=== PATIENT | male | born 1935 | race Two or more races ===

== ENCOUNTER 2020-02-07 11:48 | Emergency (ER) | payer BC, OTHER ==
[2020-02-07 12:01] VITALS: BMI 32.3
--- NOTE | 2020-02-07 12:36 | PDOC ---
History of Present Illness - General Chief Complaint: Pain, Acute Stated Complaint: ABD PAIN Time Seen by Provider: 02/07/20 12:04 - History of Present Illness Initial Comments: 02/07/20 12:27 84 yo male with PMH of BPH, HTN, hypothyroidism, HLD, asthma, CHF, prior stroke (right sided weakness) presents to the ED with urinary retention and dysuria for about one week. 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 explains that pt has had multiple sxs of urinary retention for years due to BPH but this time he started having dysuria with urinary retention. Pt explains five days ago went to urgent care with sxs and he was given doxycycline which he has been on for five days and has not helped with sxs. believes pt last urination was today but believes he was not able to void fully. then says his diaper was wet so he believes he went on himself. also explains he had a separate complaint of bloody bowel movements due to his hemorrhoid (not sure if internal or external). Pt has had a bowel movement yesterday with an abundance of blood with straining. Pt then had bowel movement this morning who had only a little bowel movement with also a little blood. Pt has had a colonoscopy at [facility] around 3 years ago with no colon cancer pathology. Pt also has associated abdominal swelling which has been going for few weeks. Pt denies abdominal pain, fevers, chills, SOB, chest pain, palpitations, extremity swelling, or any LOC. PMH: - CVA -heart failure -htn -hypothyroid -HLD -asthma -arthiritis Meds: - Aspirin - Famotidine - Furosemide -amlodipine - tamsulosin -finasteride - valsartan -levothyroxine -atrovastatin -montelukast sodium -breo - prednisone PSx: Stents Social: Denies drugs, alcohol, and tobacco. Lives at home with no aids PCP: Dr. Quintero pulariana: Rod cardio: Dr. Mojica Past History - Medical History Allergies/Adverse Reactions: Allergies Allergy/AdvReac Type Severity Reaction Status Date / Time No Known Allergies Allergy Verified 02/07/20 12:38 COPD: No HTN: Yes Hypercholesterolemia: Yes Other medical history: BPH - Psycho-Social/Smoking History Smoking History: Unknown if ever smoked - Substance Abuse Hx (Audit-C & DAST Scrn) How often the patient has a drink containing alcohol: Never Score: In Men: 4 or > Positive; In Women: 3 or > Positive: 0 Screen Result (Pos requires Nsg. Audit-10AR): Negative In the last yr the pt used illegal drug/Rx for NonMed reason: No Score: Yes response is considered Positive: 0 Screen Result (Positive result requires Nsg. DAST-10): Negative Review of Systems - Review of Systems Comments:: 02/07/20 13:00 GENERAL/CONSTITUTIONAL: No fever or chills. No weakness. HEAD, EYES, EARS, NOSE AND THROAT: No change in vision. No ear pain or discharge. No sore throat. CARDIOVASCULAR: No chest pain. Chronic SOB due to asthma RESPIRATORY: No cough, wheezing, or hemoptysis. GASTROINTESTINAL: No nausea, vomiting, diarrhea or constipation. Bloody bowel movements GENITOURINARY: Dysruia and urinary retention MUSCULOSKELETAL: No joint or muscle swelling or pain. No neck or back pain. SKIN: No rash NEUROLOGIC: No headache, vertigo, loss of consciousness, or change in strength/sensation. ENDOCRINE: No increased thirst. No abnormal weight change ALLERGIC/IMMUNOLOGIC: No hives or skin allergy. *Physical Exam - Vital Signs Last Vital Signs Temp Pulse Resp BP Pulse Ox 97.8 F 90 18 106/66 99 02/07/20 11:54 02/07/20 11:54 02/07/20 11:54 02/07/20 11:54 02/07/20 11:54 - Physical Exam 02/07/20 13:02 GENERAL: Awake, alert, and fully oriented, in moderate distress HEAD: No signs of trauma, normocephalic, atraumatic EYES: PERRLA, EOMI, sclera anicteric, conjunctiva clear ENT: Auricles normal inspection, hearing decreased, nares patent, oropharynx clear without exudates. Moist mucosa NECK: Normal ROM, supple, no lymphadenopathy, JVD, or masses LUNGS: No distress, speaks full sentences, clear to auscultation bilaterally HEART: Regular rate and rhythm, normal S1 and S2, no murmurs, rubs or gallops, peripheral pulses normal and equal bilaterally. ABDOMEN: Distended. Normal bowel sounds in all four quandrants. Tender to palpation in RUQ and RLQ EXTREMITIES : Decreased ROM of Right lower ext. no edema. No clubbing or cyanosis. NEUROLOGICAL: Cranial nerves II through XII grossly intact. Normal speech, normal gait, no focal sensorimotor deficits SKIN: Warm, Dry, normal turgor, no rashes or lesions noted Rectal: Soft brown stool. hemorrhoiod located on 7 o clock not bleeding. Prostate felt enlarged but no nodules. ED Treatment Course - LABORATORY CBC & Chemistry Diagram: 02/07/20 12:38 02/07/20 12:38 Medical Decision Making - Medical Decision Making 02/07/20 14:20 84 yo male with pmh of BPH, DM, HTN, HLD presents to ED with dysuria and urinary retention for one week. Will get CBC, CMP, lactate, EKG, Chest Xray, and POCUS to view how much urine is being retained. Will also get UA and UC to rule out UTI. 02/07/20 14:26 With US his Urine volume is around 600-700cc ordered uriner ellis catheter. 02/07/20 15:07 Urinary catether was placed 500+ urine 02/07/20 15:26 Made a call out to urologist automobile service station mechanic Dr. Parada reached legal administrative secretary will call back 02/07/20 15:45 Pt urine came back and showed no infection 02/07/20 22:48 Dr. Parada called back and said it was okay for pt to be discharged with ellis and to tell pt to call office and schedule an appointment when the leave the ED. Message was relayed to pt and they agreed to plan and were given strict return precautions. Discharge - Discharge Information Problems reviewed: Yes Clinical Impression/Diagnosis: Urinary retention Condition: Improved Disposition: HOME - Follow up/Referral Referrals: Jaydon Quintero [Primary Care Provider] - Mike Park MD [Staff Physician] - Mary Alice Ye DO [Staff Physician] - Manolo Santos DO [Staff Physician] - Rickey Sandoval MD [Staff Physician] - Luisa Araujo MD [Staff Physician] - Kaitlin Mccray MD [Staff Physician] - - Patient Discharge Instructions Patient Printed Discharge Instructions: DI for Urinary Retention in Men Additional Instructions: You came into the ED because you were experiencing urinary retention and pain with urination. This is most likely due to your BPH. You also had prior episodes of bloody bowel movements. This was most likely due to your hemorrhoids At the ED you were given a Chest xray, EKG, urinalysis, ultrasound and blood was drawn to rule out any infection. Your blood work and urinanalysis shown no infection. Your ultrasound showed a large amount of urine 500cc so we decided to do a urine cath which showed a >500cc of urine. We decided to leave the catheter in place and you to follow up with an outpatient urologist. For you bloody bowel movements, the bowel movement you had here showed no gross blood. An external hemorrhoid was noted as well but that was not bleeding. You blood work also showed no decrease in Hgb. For this we recommend following up with a casing blower. Your workup is not complete without following up with PCP, urologist, and gastroenterology. Please return to the ED if: -blood in the urine - worsening pain or sxs - SOB -Chest pain - Any emergent sxs If you think you are having an emergency call for medical help right away. - Post Discharge Activity
[2020-02-07 12:57] LABS: BASO % 0.8 % (0-2.0); EOS % 1.3 % (0-4.5); HEMATOCRIT 35.6 % (35.4-49); HEMOGLOBIN 11.7 GM/dL (11.7-16.9); LYMPH % 29.1 % (8-40); MCH 27.4 pg (25.7-33.7); MCHC 32.8 g/dl (32.0-35.9); MEAN CELL VOLUME 83.6 fl (80-96); MEAN PLT VOLUME 7.6 fl (7.5-11.1); MONO % 9.1 % (3.8-10.2); NEUT % 59.7 % (42.8-82.8); PLATELET COUNT 244 K/MM3 (134-434); RBC 4.26 M/mm3 (4.00-5.60); RDW 18.7 % (11.9-15.9); WHITE BLOOD COUNT 8.2 K/mm3 (4.0-10.0)
[2020-02-07 13:29] LABS: ALBUMIN 2.3 g/dl (3.4-5.0); ALK PHOS 83 U/L (45-117); ANION GAP 9 MMOL/L (8-16); BILIRUBIN,TOTAL 0.6 mg/dL (0.2-1); BLOOD UREA NITROGEN 10.3 mg/dL (7-18); CALCIUM 8.3 mg/dL (8.5-10.1); CHLORIDE 99 mmol/L (98-107); CO2 28 mmol/L (21-32); CREATININE 0.9 mg/dL (0.55-1.3); GLUCOSE,RANDOM 126 mg/dL (74-106); SGOT/AST 20 U/L (15-37); SGPT/ALT 24 U/L (13-61); SODIUM 135 mmol/L (136-145)
--- NOTE | 2020-02-07 14:27 | PDOC ---
Documentation entered by Eligio Douglas SCRIBE, acting as scribe for Gisselle Simmons MD. Gisselle Simmons MD: This documentation has been prepared by the josetteibe, Eligio Douglas SCRIBE, under my direction and personally reviewed by me in its entirety. I confirm that the documentation accurately reflects all work, treatment, procedures, and medical decision making performed by me. Attending Attestation - Resident Resident Name: Eulalio Higuera - ED Attending Attestation I have performed the following: I have examined & evaluated the patient, The case was reviewed & discussed with the resident, I agree w/resident's findings & plan, Exceptions are as noted - HPI HPI: 02/07/20 13:02 The patient is an 84 year old male with a significant past medical history of HTN. HLD, BPH, hyperthyroidism, asthma, CHF and stroke who presents to the ED with dysuria and urinary retention for one week. Per patients , the patient has had urinary retention for years secondary to BPH but the retention is now associated with dysuria. Patient went to Urgent Care for evaluation five days ago and was given doxycycline with no relief. Per , the patient also has bloody bowel movements secondary to a hemorrhoid (LBM: this morning). He had a colonoscopy about three years ago at [facility] which showed normal results. THe patient denies fever, chills, sob, or chest pain. The patient denies abd ominal pain. THe patient denies any other symptoms. Social Hx: None reported Surgical Hx: stents PCP: Dr. Quintero Allergies: NKDA - Physicial Exam PE: 02/07/20 14:24 General: well appearing Abdomen: obese limiting exam, soft, mild suprapubic ttp, no rebound, no guarding Back: no CVA tenderness Rectal: + external hemorrhoid - Medical Decision Making 02/07/20 14:25 84 yo M with urinary retention likely 2/2 BPH, will check urine to r/o UTI. Also with some blood with straining and evidence of hemorrhoid on exam, bleeding like ly 2/2 hemorrhoid. No gross blood on CASEY. Plan: -labs -urine -ellis catheter -reassess This clinical encounter is taking place during a federal and state health care emergency attributable to the novel Salazar Virus pandemic. The [place] of the Department of Health and Human Services has declared, pursuant to the Public Health Service Act 319F-3 (42 U.S.C. 247d-6d), that a covered persons activities related to medical countermeasures against COVID-19 will be immune from liability under Federal and State law. 02/09/20 10:07 Ellis inserted, ~500 cc urine returned. Patient with improvement in symptoms. UA without evidence of infection. Pt to be d/bhaskar and will f/u with . Discharge - Discharge Information Problems reviewed: Yes Clinical Impression/Diagnosis: Urinary retention Condition: Improved Disposition: HOME - Follow up/Referral Referrals: Manolo Santos DO [Staff Physician] - Kaitlin Mccray MD [Staff Physician] - Luisa Araujo MD [Staff Physician] - Jaydon Quintero [Primary Care Provider] - Mary Alice Ye DO [Staff Physician] - Mike Park MD [Staff Physician] - Rickey Sandoval MD [Staff Physician] - - Patient Discharge Instructions Patient Printed Discharge Instructions: DI for Urinary Retention in Men Additional Instructions: You came into the ED because you were experiencing urinary retention and pain with urination. This is most likely due to your BPH. You also had prior episodes of bloody bowel movements. This was most likely due to your hemorrhoids At the ED you were given a Chest xray, EKG, urinalysis, ultrasound and blood was drawn to rule out any infection. Your blood work and urinanalysis shown no infection. Your ultrasound showed a large amount of urine 500cc so we decided to do a urine cath which showed a >500cc of urine. We decided to leave the catheter in place and you to follow up with an outpatient urologist. For you bloody bowel movements, the bowel movement you had here showed no gross blood. An external hemorrhoid was noted as well but that was not bleeding. You blood work also showed no decrease in Hgb. For this we recommend following up with a cereal maker. Your workup is not complete without following up with PCP, urologist, and gastroenterology. Please return to the ED if: -blood in the urine - worsening pain or sxs - SOB -Chest pain - Any emergent sxs If you think you are having an emergency call for medical help right away. - Post Discharge Activity
[2020-02-07 15:27] LABS: PH,URINE 7.5 (5.0-8.0); URINE APPEARANCE CLEAR; URINE BILIRUBIN NEGATIVE (NEGATIVE); URINE COLOR YELLOW; URINE GLUCOSE (UA) NEGATIVE (NEGATIVE); URINE KETONE NEGATIVE (NEGATIVE); URINE LEUK ESTERASE NEGATIVE (NEGATIVE); URINE NITRITE NEGATIVE (NEGATIVE); URINE PROTEIN NEGATIVE (NEGATIVE); URINE UROBILINOGEN 0.2 mg/dL (0.2-1.0)
[2020-02-07 15:32] VITALS: BP 110/64
[2020-02-07 16:40] VITALS: PULSE 78; TEMP 98.5
--- NOTE | 2020-02-08 12:06 | EKG ---
Test Reason : Blood Pressure : / mmHG Vent. Rate : 084 BPM Atrial Rate : 084 BPM P-R Int : 144 ms QRS Dur : 112 ms QT Int : 402 ms P-R-T Axes : 010 039 012 degrees QTc Int : 475 ms NORMAL SINUS RHYTHM INCOMPLETE RIGHT BUNDLE BRANCH BLOCK BORDERLINE ECG WHEN COMPARED WITH ECG OF 13-JAN-2006 19:51, INCOMPLETE RIGHT BUNDLE BRANCH BLOCK IS NOW PRESENT Confirmed by Terry Lieberman MD ([id number]) on 02/08/2020 12:05:51 PM Referred By: Confirmed By:Terry Lieberman MD
== END 2020-02-07 16:41 | disposition home or self-care (01) ==
LOC: JER 11:48
DX: R33.9 Retention of urine, unspecified (principal)
CPT/HCPCS: 36415; 71045-TC-FY; 80053; 81003; 83605; 84484; 85025; 87086; 93005; 93010; 99285-25

== ENCOUNTER 2020-07-22 05:15 | Emergency (ER) | payer BC ==
[2020-07-22] MEDS ORDERED: SULFAMETHOXAZOLE/TRIMETHOPRIM 800MG/160MG D.S. TABLET PO ONE (06:35)
[2020-07-22 06:43] VITALS: BP 152/65; PULSE 69; TEMP 97.8; BMI 32.3
[2020-07-22] MEDS ORDERED: SULFAMETHOXAZOLE/TRIMETHOPRIM 800MG/160MG D.S. TABLET ONE (06:52)
[2020-07-22 06:57] LABS: EPI CELLS 2 /uL (0-25.1); HYALINE CASTS 12 /uL (0-3.1); PH,URINE 7.5 (5.0-8.0); URINE APPEARANCE TURBID; URINE BACTERIA >9,000 /uL (0-1359); URINE BILIRUBIN NEGATIVE (NEGATIVE); URINE COLOR YELLOW; URINE GLUCOSE (UA) NEGATIVE (NEGATIVE); URINE KETONE NEGATIVE (NEGATIVE); URINE LEUK ESTERASE 3+ (NEGATIVE); URINE NITRITE NEGATIVE (NEGATIVE); URINE PROTEIN TRACE (NEGATIVE); URINE RBC 1561 /uL (0-23.9); URINE UROBILINOGEN 0.2 mg/dL (0.2-1.0); URINE WBC 2293 /uL (0-25.8)
== END 2020-07-22 07:00 | disposition home or self-care (01) ==
LOC: JER 05:15
DX: N48.89 Other specified disorders of penis (principal); T83.9XXA Unspecified complication of genitourinary prosthetic device, implant and graft, initial encounter
CPT/HCPCS: 81003; 87086; 99284-25

== ENCOUNTER 2020-08-14 23:23 | Inpatient (IN) | payer BC, OTHER ==
[2020-08-14 23:32] VITALS: BMI 28.2
[2020-08-15 01:59] LABS: INR 1.02 (0.83-1.09); PROTHROMBIN TIME (PATIENT) 12.3 SEC (9.7-13.0)
[2020-08-15 02:00] LABS: EPI CELLS 2 /uL (0-25.1); HYALINE CASTS 0 /uL (0-3.1); PH,URINE 7.5 (5.0-8.0); URINE APPEARANCE CLOUDY; URINE BACTERIA 4026 /uL (0-1359); URINE BILIRUBIN NEGATIVE (NEGATIVE); URINE COLOR RED; URINE GLUCOSE (UA) NEGATIVE (NEGATIVE); URINE KETONE NEGATIVE (NEGATIVE); URINE LEUK ESTERASE 3+ (NEGATIVE); URINE NITRITE POSITIVE (NEGATIVE); URINE PROTEIN 1+ (NEGATIVE); URINE RBC 6997 /uL (0-23.9); URINE UROBILINOGEN 0.2 mg/dL (0.2-1.0); URINE WBC 1647 /uL (0-25.8)
[2020-08-15 02:01] LABS: ACTIVATED PTT 27.8 SECONDS (25.2-36.5); BASO % 0.3 % (0-2.0); EOS % 0.2 % (0-4.5); HEMATOCRIT 36.6 % (35.4-49); HEMOGLOBIN 11.8 GM/dL (11.7-16.9); LYMPH % 10.1 % (8-40); MCHC 32.3 g/dl (32.0-35.9); MEAN CELL VOLUME 86.7 fl (80-96); MEAN PLT VOLUME 9.3 fl (7.5-11.1); MONO % 0.5 % (3.8-10.2); NEUT % 88.9 % (42.8-82.8); PLATELET COUNT 310 K/MM3 (134-434); RBC 4.22 M/mm3 (4.00-5.60); RDW 17.7 % (11.9-15.9); WHITE BLOOD COUNT 8.2 K/mm3 (4.0-10.0)
[2020-08-15 02:11] LABS: POTASSIUM 4.3 mmol/L (3.5-5.1)
[2020-08-15 02:13] LABS: CALCIUM 9.2 mg/dL (8.5-10.1)
[2020-08-15 02:14] LABS: ALBUMIN 2.7 g/dl (3.4-5.0); BLOOD UREA NITROGEN 29.6 mg/dL (7-18)
[2020-08-15 02:17] LABS: CREATININE 1.2 mg/dL (0.55-1.3)
[2020-08-15 02:18] LABS: BILIRUBIN,TOTAL 0.3 mg/dL (0.2-1); TOT PROT 6.4 g/dl (6.4-8.2)
[2020-08-15] MEDS ORDERED: LACTATED RINGERS SOLUTION 1000 ML INFUS.BAG IV ONE (03:49)
[2020-08-15 04:25] LABS: BASO % 0.3 % (0-2.0); EOS % 0.3 % (0-4.5); HEMATOCRIT 35.9 % (35.4-49); HEMOGLOBIN 11.4 GM/dL (11.7-16.9); LYMPH % 4.3 % (8-40); MCH 27.9 pg (25.7-33.7); MCHC 31.9 g/dl (32.0-35.9); MEAN CELL VOLUME 87.6 fl (80-96); MEAN PLT VOLUME 8.8 fl (7.5-11.1); MONO % 0.5 % (3.8-10.2); NEUT % 94.6 % (42.8-82.8); PLATELET COUNT 277 K/MM3 (134-434); RBC 4.09 M/mm3 (4.00-5.60); RDW 17.6 % (11.9-15.9); WHITE BLOOD COUNT 16.5 K/mm3 (4.0-10.0)
[2020-08-15 06:13] LABS: ANISOCYTOSIS 1+; MACROCYTOSIS 0; PLATELET ESTIMATE NORMAL
[2020-08-15] MEDS ORDERED: SODIUM CHLORIDE 1,000 ML IV SCH (07:30)
[2020-08-15] MEDS ORDERED: ENOXAPARIN NA (PORCINE) 40 MG/0.4 ML DISP.SYRIN SQ ONE (08:21)
[2020-08-15] MEDS ORDERED: ACETAMINOPHEN 325 MG TABLET (FP) ONE (08:21)
[2020-08-15] MEDS ORDERED: CEFTRIAXONE 1 GM/50 ML BAG ONE (08:22)
[2020-08-15] MEDS ORDERED: PATIENT'S OWN MEDICATION (NON-FORMULARY) (Ipratropium/Albuterol Sulfate 1 PUFF Inhaler) IH PRN (08:34)
[2020-08-15] MEDS: ACETAMINOPHEN 325 MG TABLET (FP) PO PRN (08:42)
[2020-08-15] MEDS ORDERED: FUROSEMIDE 20 MG TABLET (FP) PO SCH ×2 (08:45→14:00)
[2020-08-15] MEDS ORDERED: PIPERACILLIN/TAZOB 3.375 GM 3.375 GM in DEXTROSE 5%-WATER - 50 ML IVPB SCH ×2 (09:00→13:00)
[2020-08-15] MEDS: ENOXAPARIN NA (PORCINE) 40 MG/0.4 ML DISP.SYRIN SQ SCH (09:07)
[2020-08-15] MEDS ORDERED: FAMOTIDINE 10 MG TABLET PO SCH (10:00)
[2020-08-15] MEDS ORDERED: FUROSEMIDE 40 MG TABLET (FP) PO SCH (10:00)
[2020-08-15] MEDS ORDERED: ASPIRIN 81 MG CHEWABLE TABLETS ONE (10:40)
[2020-08-15] MEDS ORDERED: FAMOTIDINE 20 MG TABLET ONE (10:40)
[2020-08-15] MEDS ORDERED: LEVOTHYROXINE NA 25 MCG TABLET (FP) ONE (10:40)
[2020-08-15] MEDS ORDERED: PIPERACILLIN/TAZOB 3.375 GM 3.375 GM/50 ML BAG IVPB ONE ×2 (10:41→18:34)
[2020-08-15 10:59] LABS: POTASSIUM 4.8 mmol/L (3.5-5.1)
[2020-08-15 11:01] LABS: BLOOD UREA NITROGEN 30.9 mg/dL (7-18); CALCIUM 9.3 mg/dL (8.5-10.1)
[2020-08-15 11:05] LABS: CREATININE 1.4 mg/dL (0.55-1.3)
[2020-08-15] MEDS: ASPIRIN 81 MG CHEWABLE TABLETS PO SCH (11:35)
[2020-08-15] MEDS: FINASTERIDE 5 MG TABLET (FP) PO SCH (11:36)
[2020-08-15] MEDS: LEVOTHYROXINE NA 100 MCG TABLET (FP) PO SCH (11:36)
[2020-08-15] MEDS: BUDESONIDE/FORMETEROL FUMARATE 160/4.5 mcg INHALER IH SCH ×2 (11:36→23:06)
[2020-08-15] MEDS: TIOTROPIUM BROMIDE 2.5 MCG (SPIRIVA) RESPIMAT INHALER IH SCH (11:36)
[2020-08-15] MEDS ORDERED: FUROSEMIDE 40 MG TABLET (FP) ONE (11:39)
[2020-08-15] MEDS ORDERED: ALBUTEROL SO4 0.083% IH SOL 2.5 MG/3 ML VIAL.NEB. NEB PRN (14:29)
[2020-08-15] MEDS: PIPERACILLIN/TAZOB 3.375 GM 3.375 GM in DEXTROSE 5%-WATER - 50 ML IVPB SCH (19:04)
[2020-08-15 21:53] LABS: N-TERMINAL BNP 2496.1 pg/ml (5-450)
[2020-08-15] MEDS ORDERED: MONTELUKAST NA 10 MG TABLET ONE (22:28)
[2020-08-15] MEDS ORDERED: ATORVASTATIN CA 80 MG TABLET (FP) ONE (22:28)
[2020-08-15] MEDS: MONTELUKAST NA 10 MG TABLET PO SCH (22:29)
[2020-08-15] MEDS: ATORVASTATIN CA 80 MG TABLET (FP) PO SCH (22:29)
[2020-08-16] MEDS ORDERED: PIPERACILLIN/TAZOB 3.375 GM 3.375 GM/50 ML BAG IVPB ONE ×2 (02:16→08:51)
[2020-08-16] MEDS: PIPERACILLIN/TAZOB 3.375 GM 3.375 GM in DEXTROSE 5%-WATER - 50 ML IVPB SCH ×2 (02:20→10:18)
[2020-08-16] MEDS ORDERED: LEVOTHYROXINE NA 25 MCG TABLET (FP) ONE (05:56)
[2020-08-16] MEDS: LEVOTHYROXINE NA 100 MCG TABLET (FP) PO SCH (06:13)
[2020-08-16 08:20] LABS: BASO % 0.2 % (0-2.0); EOS % 0.4 % (0-4.5); HEMATOCRIT 34.7 % (35.4-49); HEMOGLOBIN 11.2 GM/dL (11.7-16.9); LYMPH % 4.6 % (8-40); MCH 27.8 pg (25.7-33.7); MCHC 32.4 g/dl (32.0-35.9); MONO % 2.7 % (3.8-10.2); NEUT % 92.1 % (42.8-82.8); PLATELET COUNT 245 K/MM3 (134-434); RBC 4.03 M/mm3 (4.00-5.60); WHITE BLOOD COUNT 28.4 K/mm3 (4.0-10.0)
[2020-08-16 08:36] LABS: POTASSIUM 3.8 mmol/L (3.5-5.1)
[2020-08-16 08:40] LABS: ALBUMIN 2.3 g/dl (3.4-5.0); BLOOD UREA NITROGEN 34.6 mg/dL (7-18); CALCIUM 8.3 mg/dL (8.5-10.1); MAGNESIUM 2.4 mg/dL (1.8-2.4)
[2020-08-16 08:43] LABS: CREATININE 1.5 mg/dL (0.55-1.3); PHOSPHOROUS 4.2 mg/dL (2.5-4.9)
[2020-08-16 08:45] LABS: BILIRUBIN,TOTAL 2.1 mg/dL (0.2-1); TOT PROT 6.1 g/dl (6.4-8.2)
[2020-08-16] MEDS ORDERED: ENOXAPARIN NA (PORCINE) 40 MG/0.4 ML DISP.SYRIN SQ ONE (08:50)
[2020-08-16] MEDS ORDERED: ASPIRIN 81 MG CHEWABLE TABLETS ONE (08:51)
[2020-08-16] MEDS ORDERED: PIPERACILLIN/TAZOB 3.375 GM 3.375 GM in DEXTROSE 5%-WATER - 50 ML IVPB SCH (09:00)
[2020-08-16 09:21] LABS: ANISOCYTOSIS 0; MACROCYTOSIS 0; PLATELET ESTIMATE NORMAL
[2020-08-16] MEDS ORDERED: CEFTRIAXONE 1 GM in DEXTROSE 5%-WATER - 50 ML IVPB SCH (10:00)
[2020-08-16] MEDS: BUDESONIDE/FORMETEROL FUMARATE 160/4.5 mcg INHALER IH SCH ×2 (10:17→22:00)
[2020-08-16] MEDS: TIOTROPIUM BROMIDE 2.5 MCG (SPIRIVA) RESPIMAT INHALER IH SCH (10:17)
[2020-08-16] MEDS: FINASTERIDE 5 MG TABLET (FP) PO SCH (10:17)
[2020-08-16] MEDS: ENOXAPARIN NA (PORCINE) 40 MG/0.4 ML DISP.SYRIN SQ SCH (10:17)
[2020-08-16] MEDS: ASPIRIN 81 MG CHEWABLE TABLETS PO SCH (10:17)
[2020-08-16] MEDS ORDERED: methylPREDNISolone NA SUCC 40 MG/1 ML VIAL ONE ×2 (10:44→18:12)
[2020-08-16] MEDS: SODIUM CHLORIDE 1,000 ML IV SCH (10:50)
[2020-08-16] MEDS: methylPREDNISolone NA SUCC 40 MG/1 ML VIAL IVPUSH SCH ×2 (10:50→18:13)
[2020-08-16] MEDS ORDERED: PANTOPRAZOLE SODIUM 40 MG VIAL ONE (14:55)
[2020-08-16] MEDS: PANTOPRAZOLE SODIUM 40 MG VIAL IVPUSH SCH (15:00)
[2020-08-16] MEDS ORDERED: MEROPENEM 1 GM VIAL (RESTRICTED TO ID) IVPB ONE (18:11)
[2020-08-16] MEDS: MEROPENEM 1 GM in DEXTROSE 5%-WATER 100 ML IVPB SCH (18:13)
[2020-08-16] MEDS ORDERED: ATORVASTATIN CA 80 MG TABLET (FP) ONE (21:49)
[2020-08-16] MEDS ORDERED: MONTELUKAST NA 10 MG TABLET ONE (21:49)
[2020-08-16] MEDS: MONTELUKAST NA 10 MG TABLET PO SCH (22:00)
[2020-08-16] MEDS: ATORVASTATIN CA 80 MG TABLET (FP) PO SCH (22:00)
[2020-08-17] MEDS ORDERED: SODIUM CHLORIDE 500 ML IV STA (01:38)
[2020-08-17] MEDS: methylPREDNISolone NA SUCC 40 MG/1 ML VIAL IVPUSH SCH (02:36)
[2020-08-17] MEDS ORDERED: MEROPENEM 1 GM VIAL (RESTRICTED TO ID) IVPB ONE (05:39)
[2020-08-17] MEDS ORDERED: DEXTROSE 5%-WATER 100 ML IVPB ONE (05:39)
[2020-08-17] MEDS: MEROPENEM 1 GM in DEXTROSE 5%-WATER 100 ML IVPB SCH ×2 (06:06→17:24)
[2020-08-17] MEDS: LEVOTHYROXINE NA 100 MCG TABLET (FP) PO SCH (06:15)
[2020-08-17 08:56] LABS: BASO % 0.1 % (0-2.0); HEMATOCRIT 29.9 % (35.4-49); HEMOGLOBIN 9.6 GM/dL (11.7-16.9); LYMPH % 3.8 % (8-40); MCH 27.7 pg (25.7-33.7); MCHC 31.9 g/dl (32.0-35.9); MEAN CELL VOLUME 86.6 fl (80-96); MEAN PLT VOLUME 9.1 fl (7.5-11.1); MONO % 1.9 % (3.8-10.2); NEUT % 92.2 % (42.8-82.8); PLATELET COUNT 200 K/MM3 (134-434); RBC 3.46 M/mm3 (4.00-5.60); RDW 18.4 % (11.9-15.9)
[2020-08-17 09:13] LABS: POTASSIUM 3.8 mmol/L (3.5-5.1)
[2020-08-17 09:17] LABS: CALCIUM 7.8 mg/dL (8.5-10.1)
[2020-08-17 09:18] LABS: ALBUMIN 1.9 g/dl (3.4-5.0); BLOOD UREA NITROGEN 39.2 mg/dL (7-18)
[2020-08-17 09:21] LABS: CREATININE 1.5 mg/dL (0.55-1.3)
[2020-08-17 09:23] LABS: BILIRUBIN,TOTAL 0.7 mg/dL (0.2-1); TOT PROT 5.4 g/dl (6.4-8.2)
[2020-08-17] MEDS: ASPIRIN 81 MG CHEWABLE TABLETS PO SCH (09:38)
[2020-08-17] MEDS: PANTOPRAZOLE SODIUM 40 MG VIAL IVPUSH SCH (09:38)
[2020-08-17] MEDS: ENOXAPARIN NA (PORCINE) 40 MG/0.4 ML DISP.SYRIN SQ SCH (09:38)
[2020-08-17] MEDS: BUDESONIDE/FORMETEROL FUMARATE 160/4.5 mcg INHALER IH SCH ×2 (09:41→21:34)
[2020-08-17] MEDS: FINASTERIDE 5 MG TABLET (FP) PO SCH (09:57)
[2020-08-17] MEDS: SODIUM CHLORIDE 1,000 ML IV SCH (11:43)
[2020-08-17] MEDS: TIOTROPIUM BROMIDE 2.5 MCG (SPIRIVA) RESPIMAT INHALER IH SCH (11:43)
[2020-08-17 12:28] LABS: ANISOCYTOSIS 0; MACROCYTOSIS 0; PLATELET ESTIMATE NORMAL
[2020-08-17] MEDS: ATORVASTATIN CA 80 MG TABLET (FP) PO SCH (21:34)
[2020-08-17] MEDS: MONTELUKAST NA 10 MG TABLET PO SCH (21:34)
[2020-08-18] MEDS: MEROPENEM 1 GM in DEXTROSE 5%-WATER 100 ML IVPB SCH (06:03)
[2020-08-18] MEDS: LEVOTHYROXINE NA 100 MCG TABLET (FP) PO SCH (06:04)
[2020-08-18 08:26] LABS: BASO % 0.2 % (0-2.0); HEMATOCRIT 28.9 % (35.4-49); HEMOGLOBIN 9.4 GM/dL (11.7-16.9); LYMPH % 5.7 % (8-40); MCH 27.9 pg (25.7-33.7); MCHC 32.6 g/dl (32.0-35.9); MEAN CELL VOLUME 85.7 fl (80-96); MEAN PLT VOLUME 9.1 fl (7.5-11.1); MONO % 3.6 % (3.8-10.2); NEUT % 90.5 % (42.8-82.8); PLATELET COUNT 188 K/MM3 (134-434); RBC 3.37 M/mm3 (4.00-5.60); RDW 18.2 % (11.9-15.9)
[2020-08-18 08:38] LABS: POTASSIUM 4.1 mmol/L (3.5-5.1)
[2020-08-18 08:42] LABS: CALCIUM 7.8 mg/dL (8.5-10.1)
[2020-08-18 08:43] LABS: ALBUMIN 1.9 g/dl (3.4-5.0); BLOOD UREA NITROGEN 37.8 mg/dL (7-18); MAGNESIUM 2.7 mg/dL (1.8-2.4)
[2020-08-18 08:46] LABS: CREATININE 1.4 mg/dL (0.55-1.3)
[2020-08-18 08:47] LABS: BILIRUBIN,TOTAL 0.4 mg/dL (0.2-1); PHOSPHOROUS 2.9 mg/dL (2.5-4.9)
[2020-08-18 08:48] LABS: TOT PROT 5.3 g/dl (6.4-8.2)
[2020-08-18] MEDS: ENOXAPARIN NA (PORCINE) 40 MG/0.4 ML DISP.SYRIN SQ SCH (09:17)
[2020-08-18] MEDS: ASPIRIN 81 MG CHEWABLE TABLETS PO SCH (09:17)
[2020-08-18] MEDS: DEXTROSE 5%-WATER - 1,000 ML IV SCH (09:22)
[2020-08-18] MEDS: FINASTERIDE 5 MG TABLET (FP) PO SCH (09:24)
[2020-08-18] MEDS: predniSONE 20 MG TABLET (UD) PO SCH (09:24)
[2020-08-18] MEDS: PANTOPRAZOLE SODIUM 40 MG VIAL IVPUSH SCH (09:27)
[2020-08-18] MEDS ORDERED: DOCUSATE SODIUM 100 MG CAPSULE (FP) PO PRN (09:49)
[2020-08-18] MEDS: TIOTROPIUM BROMIDE 2.5 MCG (SPIRIVA) RESPIMAT INHALER IH SCH (10:23)
[2020-08-18] MEDS: BUDESONIDE/FORMETEROL FUMARATE 160/4.5 mcg INHALER IH SCH ×2 (10:23→22:19)
[2020-08-18 11:15] LABS: ANISOCYTOSIS 0; MACROCYTOSIS 0; PLATELET ESTIMATE NORMAL
[2020-08-18] MEDS ORDERED: DEXTROSE 5%-WATER - 50 ML IVPB ONE (11:31)
[2020-08-18] MEDS ORDERED: cefTRIAXone SODIUM 1 GM VIAL ONE (11:31)
[2020-08-18] MEDS: CEFTRIAXONE 1 GM in DEXTROSE 5%-WATER - 50 ML IVPB SCH (11:51)
[2020-08-18] MEDS: INSULIN SLIDING SCALE (NOVOLOG) 1 VIAL SQ SCH ×2 (16:22→22:11)
[2020-08-18 20:39] LABS: POTASSIUM 4.6 mmol/L (3.5-5.1)
[2020-08-18 20:41] LABS: BLOOD UREA NITROGEN 33.5 mg/dL (7-18); CALCIUM 8.2 mg/dL (8.5-10.1)
[2020-08-18 20:45] LABS: CREATININE 1.2 mg/dL (0.55-1.3)
[2020-08-18] MEDS: ATORVASTATIN CA 80 MG TABLET (FP) PO SCH (22:09)
[2020-08-18] MEDS: SENNOSIDES 8.6MG TABLET (FP) PO SCH (22:09)
[2020-08-18] MEDS: MONTELUKAST NA 10 MG TABLET PO SCH (22:09)
[2020-08-19] MEDS: DEXTROSE 5%-WATER - 1,000 ML IV SCH (06:36)
[2020-08-19] MEDS: LEVOTHYROXINE NA 100 MCG TABLET (FP) PO SCH (06:36)
[2020-08-19] MEDS: INSULIN SLIDING SCALE (NOVOLOG) 1 VIAL SQ SCH ×4 (06:37→21:54)
[2020-08-19] MEDS ORDERED: cefTRIAXone SODIUM 1 GM VIAL ONE (09:21)
[2020-08-19] MEDS ORDERED: DEXTROSE 5%-WATER - 50 ML IVPB ONE (09:21)
[2020-08-19] MEDS: CEFTRIAXONE 1 GM in DEXTROSE 5%-WATER - 50 ML IVPB SCH (10:36)
[2020-08-19] MEDS: BUDESONIDE/FORMETEROL FUMARATE 160/4.5 mcg INHALER IH SCH ×2 (10:37→21:54)
[2020-08-19] MEDS: TIOTROPIUM BROMIDE 2.5 MCG (SPIRIVA) RESPIMAT INHALER IH SCH (10:37)
[2020-08-19] MEDS: ASPIRIN 81 MG CHEWABLE TABLETS PO SCH (10:38)
[2020-08-19] MEDS: PANTOPRAZOLE SODIUM 40 MG VIAL IVPUSH SCH (10:38)
[2020-08-19] MEDS: ENOXAPARIN NA (PORCINE) 40 MG/0.4 ML DISP.SYRIN SQ SCH (10:38)
[2020-08-19] MEDS: FINASTERIDE 5 MG TABLET (FP) PO SCH (10:38)
[2020-08-19] MEDS: predniSONE 20 MG TABLET (UD) PO SCH (10:38)
[2020-08-19 10:49] LABS: BASO % 0.2 % (0-2.0); EOS % 0.1 % (0-4.5); HEMATOCRIT 31.4 % (35.4-49); LYMPH % 13.6 % (8-40); MCH 27.9 pg (25.7-33.7); MEAN CELL VOLUME 87.1 fl (80-96); MEAN PLT VOLUME 9.4 fl (7.5-11.1); NEUT % 80.1 % (42.8-82.8); PLATELET COUNT 195 K/MM3 (134-434); RDW 18.1 % (11.9-15.9); WHITE BLOOD COUNT 15.5 K/mm3 (4.0-10.0)
[2020-08-19 10:58] LABS: POTASSIUM 4.3 mmol/L (3.5-5.1)
[2020-08-19 11:04] LABS: CALCIUM 8.4 mg/dL (8.5-10.1)
[2020-08-19 11:05] LABS: BLOOD UREA NITROGEN 28.1 mg/dL (7-18); MAGNESIUM 2.7 mg/dL (1.8-2.4)
[2020-08-19 11:08] LABS: CREATININE 1.2 mg/dL (0.55-1.3); PHOSPHOROUS 2.6 mg/dL (2.5-4.9)
[2020-08-19 11:09] LABS: TOT PROT 5.5 g/dl (6.4-8.2)
[2020-08-19 11:12] LABS: BILIRUBIN,TOTAL 0.4 mg/dL (0.2-1)
[2020-08-19] MEDS: ACETAMINOPHEN 325 MG TABLET (FP) PO PRN (11:15)
[2020-08-19] MEDS: amLODIPine BESYLATE 5 MG TABLET (FP) PO SCH (14:49)
[2020-08-19] MEDS: VALSARTAN 40 MG TABLET PO SCH (14:52)
[2020-08-19] MEDS ORDERED: FUROSEMIDE 40 MG/4 ML INJECTABLE VIAL IVPUSH ONE (15:00)
[2020-08-19] MEDS: MONTELUKAST NA 10 MG TABLET PO SCH (21:53)
[2020-08-19] MEDS: ATORVASTATIN CA 80 MG TABLET (FP) PO SCH (21:53)
[2020-08-19] MEDS: SENNOSIDES 8.6MG TABLET (FP) PO SCH (21:54)
[2020-08-20] MEDS ORDERED: FUROSEMIDE 40 MG/4 ML INJECTABLE VIAL IVPUSH ONE ×2 (05:05→08:27)
[2020-08-20] MEDS ORDERED: METOPROLOL TARTRATE 5 MG/5 ML VIAL IVPUSH ONE (05:16)
[2020-08-20] MEDS ORDERED: METOPROLOL TARTRATE 5 MG/5 ML VIAL ONE (05:17)
[2020-08-20] MEDS: INSULIN SLIDING SCALE (NOVOLOG) 1 VIAL SQ SCH ×4 (06:51→21:26)
[2020-08-20] MEDS: LEVOTHYROXINE NA 100 MCG TABLET (FP) PO SCH (06:51)
[2020-08-20] MEDS ORDERED: DEXTROSE 5%-WATER - 50 ML IVPB ONE (09:09)
[2020-08-20] MEDS ORDERED: cefTRIAXone SODIUM 1 GM VIAL ONE (09:09)
[2020-08-20] MEDS: ENOXAPARIN NA (PORCINE) 40 MG/0.4 ML DISP.SYRIN SQ SCH (09:27)
[2020-08-20] MEDS: PANTOPRAZOLE SODIUM 40 MG VIAL IVPUSH SCH (09:27)
[2020-08-20] MEDS: FINASTERIDE 5 MG TABLET (FP) PO SCH (09:27)
[2020-08-20] MEDS: predniSONE 20 MG TABLET (UD) PO SCH (09:27)
[2020-08-20] MEDS: ASPIRIN 81 MG CHEWABLE TABLETS PO SCH (09:27)
[2020-08-20] MEDS: CEFTRIAXONE 1 GM in DEXTROSE 5%-WATER - 50 ML IVPB SCH (09:27)
[2020-08-20] MEDS: amLODIPine BESYLATE 5 MG TABLET (FP) PO SCH (09:27)
[2020-08-20] MEDS: VALSARTAN 40 MG TABLET PO SCH (09:27)
[2020-08-20] MEDS: TIOTROPIUM BROMIDE 2.5 MCG (SPIRIVA) RESPIMAT INHALER IH SCH (09:28)
[2020-08-20] MEDS: BUDESONIDE/FORMETEROL FUMARATE 160/4.5 mcg INHALER IH SCH ×2 (09:28→21:33)
[2020-08-20 09:29] LABS: HEMATOCRIT 38.2 % (35.4-49); HEMOGLOBIN 12.5 GM/dL (11.7-16.9); MCH 28.2 pg (25.7-33.7); MCHC 32.6 g/dl (32.0-35.9); MEAN CELL VOLUME 86.5 fl (80-96); MEAN PLT VOLUME 9.3 fl (7.5-11.1); PLATELET COUNT 277 K/MM3 (134-434); RBC 4.42 M/mm3 (4.00-5.60); RDW 18.7 % (11.9-15.9); WHITE BLOOD COUNT 20.2 K/mm3 (4.0-10.0)
[2020-08-20 09:50] LABS: ALBUMIN 2.5 g/dl (3.4-5.0); BLOOD UREA NITROGEN 32.2 mg/dL (7-18); CALCIUM 9.2 mg/dL (8.5-10.1); MAGNESIUM 2.4 mg/dL (1.8-2.4)
[2020-08-20 09:52] LABS: BILIRUBIN,TOTAL 0.4 mg/dL (0.2-1); TOT PROT 7.1 g/dl (6.4-8.2)
[2020-08-20 09:53] LABS: CREATININE 1.3 mg/dL (0.55-1.3); PHOSPHOROUS 4.4 mg/dL (2.5-4.9)
[2020-08-20] MEDS: METOPROLOL TARTRATE 25 MG TABLET (FP) PO SCH ×2 (12:02→21:26)
[2020-08-20] MEDS: APIXABAN 5 MG TABLET PO SCH ×2 (13:57→21:26)
[2020-08-20] MEDS: FUROSEMIDE 40 MG/4 ML INJECTABLE VIAL IVPUSH SCH (13:57)
[2020-08-20] MEDS: ATORVASTATIN CA 80 MG TABLET (FP) PO SCH (21:26)
[2020-08-20] MEDS: MONTELUKAST NA 10 MG TABLET PO SCH (21:26)
[2020-08-20] MEDS: SENNOSIDES 8.6MG TABLET (FP) PO SCH (21:26)
[2020-08-21] MEDS: FUROSEMIDE 40 MG/4 ML INJECTABLE VIAL IVPUSH SCH ×2 (06:45→14:22)
[2020-08-21] MEDS: LEVOTHYROXINE NA 100 MCG TABLET (FP) PO SCH (06:45)
[2020-08-21] MEDS: INSULIN SLIDING SCALE (NOVOLOG) 1 VIAL SQ SCH ×4 (06:45→22:20)
[2020-08-21 08:14] LABS: BASO % 0.1 % (0-2.0); EOS % 0.2 % (0-4.5); HEMATOCRIT 37.9 % (35.4-49); HEMOGLOBIN 12.3 GM/dL (11.7-16.9); LYMPH % 20.4 % (8-40); MCH 27.6 pg (25.7-33.7); MCHC 32.5 g/dl (32.0-35.9); MEAN CELL VOLUME 84.8 fl (80-96); MEAN PLT VOLUME 9.4 fl (7.5-11.1); MONO % 6.1 % (3.8-10.2); NEUT % 73.2 % (42.8-82.8); PLATELET COUNT 324 K/MM3 (134-434); RBC 4.47 M/mm3 (4.00-5.60); RDW 17.6 % (11.9-15.9); WHITE BLOOD COUNT 18.2 K/mm3 (4.0-10.0)
[2020-08-21 08:45] LABS: CREATININE 1.1 mg/dL (0.55-1.3); PHOSPHOROUS 3.8 mg/dL (2.5-4.9)
[2020-08-21 08:47] LABS: BILIRUBIN,TOTAL 0.8 mg/dL (0.2-1); TOT PROT 6.7 g/dl (6.4-8.2)
[2020-08-21 08:48] LABS: ALBUMIN 2.4 g/dl (3.4-5.0); BLOOD UREA NITROGEN 36.9 mg/dL (7-18); CALCIUM 9.6 mg/dL (8.5-10.1); MAGNESIUM 2.3 mg/dL (1.8-2.4)
[2020-08-21] MEDS ORDERED: cefTRIAXone SODIUM 1 GM VIAL ONE (09:06)
[2020-08-21] MEDS ORDERED: DEXTROSE 5%-WATER - 50 ML IVPB ONE (09:06)
[2020-08-21 09:25] LABS: ANISOCYTOSIS 1+; MACROCYTOSIS 0; OVALOCYTE 1+; PLATELET ESTIMATE NORMAL
[2020-08-21] MEDS: METOPROLOL TARTRATE 25 MG TABLET (FP) PO SCH ×2 (09:35→22:09)
[2020-08-21] MEDS: CEFTRIAXONE 1 GM in DEXTROSE 5%-WATER - 50 ML IVPB SCH (09:35)
[2020-08-21] MEDS: FINASTERIDE 5 MG TABLET (FP) PO SCH (09:35)
[2020-08-21] MEDS: predniSONE 20 MG TABLET (UD) PO SCH (09:35)
[2020-08-21] MEDS: ASPIRIN 81 MG CHEWABLE TABLETS PO SCH (09:35)
[2020-08-21] MEDS: amLODIPine BESYLATE 5 MG TABLET (FP) PO SCH (09:35)
[2020-08-21] MEDS: VALSARTAN 40 MG TABLET PO SCH (09:35)
[2020-08-21] MEDS: APIXABAN 5 MG TABLET PO SCH ×2 (09:35→22:09)
[2020-08-21] MEDS: PANTOPRAZOLE SODIUM 40 MG VIAL IVPUSH SCH (09:36)
[2020-08-21] MEDS: BUDESONIDE/FORMETEROL FUMARATE 160/4.5 mcg INHALER IH SCH ×2 (09:37→22:20)
[2020-08-21] MEDS: TIOTROPIUM BROMIDE 2.5 MCG (SPIRIVA) RESPIMAT INHALER IH SCH (09:37)
[2020-08-21] MEDS ORDERED: SCOPOLAMINE HYDROBROMIDE 1 PATCH PATCH.TD72 TD SCH (11:30)
[2020-08-21] MEDS: SENNOSIDES 8.6MG TABLET (FP) PO SCH (22:09)
[2020-08-21] MEDS: MONTELUKAST NA 10 MG TABLET PO SCH (22:09)
[2020-08-21] MEDS: ATORVASTATIN CA 80 MG TABLET (FP) PO SCH (22:09)
[2020-08-22] MEDS: LEVOTHYROXINE NA 100 MCG TABLET (FP) PO SCH (06:15)
[2020-08-22] MEDS: FUROSEMIDE 40 MG/4 ML INJECTABLE VIAL IVPUSH SCH ×2 (06:18→13:25)
[2020-08-22] MEDS: INSULIN SLIDING SCALE (NOVOLOG) 1 VIAL SQ SCH ×4 (06:28→21:57)
[2020-08-22 08:12] LABS: BASO % 0.3 % (0-2.0); EOS % 0.8 % (0-4.5); HEMATOCRIT 38.1 % (35.4-49); HEMOGLOBIN 12.3 GM/dL (11.7-16.9); LYMPH % 24.7 % (8-40); MCH 27.8 pg (25.7-33.7); MCHC 32.1 g/dl (32.0-35.9); MEAN CELL VOLUME 86.6 fl (80-96); MEAN PLT VOLUME 9.5 fl (7.5-11.1); MONO % 5.7 % (3.8-10.2); NEUT % 68.5 % (42.8-82.8); PLATELET COUNT 369 K/MM3 (134-434); RDW 17.9 % (11.9-15.9); WHITE BLOOD COUNT 15.7 K/mm3 (4.0-10.0)
[2020-08-22 08:24] LABS: POTASSIUM 4.2 mmol/L (3.5-5.1)
[2020-08-22 08:31] LABS: CALCIUM 9.3 mg/dL (8.5-10.1)
[2020-08-22 08:32] LABS: ALBUMIN 2.2 g/dl (3.4-5.0); BLOOD UREA NITROGEN 40.6 mg/dL (7-18); MAGNESIUM 2.2 mg/dL (1.8-2.4)
[2020-08-22 08:33] LABS: CREATININE 1.3 mg/dL (0.55-1.3)
[2020-08-22 08:35] LABS: BILIRUBIN,TOTAL 0.8 mg/dL (0.2-1); PHOSPHOROUS 4.4 mg/dL (2.5-4.9); TOT PROT 6.5 g/dl (6.4-8.2)
[2020-08-22] MEDS ORDERED: PT OWN MED DRAWER 7, Y5N ONE (09:18)
[2020-08-22] MEDS ORDERED: cefTRIAXone SODIUM 1 GM VIAL ONE (09:19)
[2020-08-22] MEDS ORDERED: DEXTROSE 5%-WATER - 50 ML IVPB ONE (09:19)
[2020-08-22 10:09] LABS: ANISOCYTOSIS 1+; MACROCYTOSIS 0; PLATELET ESTIMATE NORMAL
[2020-08-22] MEDS: BUDESONIDE/FORMETEROL FUMARATE 160/4.5 mcg INHALER IH SCH ×2 (10:23→22:00)
[2020-08-22] MEDS: TIOTROPIUM BROMIDE 2.5 MCG (SPIRIVA) RESPIMAT INHALER IH SCH (10:36)
[2020-08-22] MEDS: ASPIRIN 81 MG CHEWABLE TABLETS PO SCH (10:47)
[2020-08-22] MEDS: predniSONE 20 MG TABLET (UD) PO SCH (10:47)
[2020-08-22] MEDS: FINASTERIDE 5 MG TABLET (FP) PO SCH (10:48)
[2020-08-22] MEDS: amLODIPine BESYLATE 5 MG TABLET (FP) PO SCH (10:48)
[2020-08-22] MEDS: METOPROLOL TARTRATE 25 MG TABLET (FP) PO SCH ×2 (10:48→21:33)
[2020-08-22] MEDS: PANTOPRAZOLE SODIUM 40 MG VIAL IVPUSH SCH (10:48)
[2020-08-22] MEDS: VALSARTAN 40 MG TABLET PO SCH (10:48)
[2020-08-22] MEDS: APIXABAN 5 MG TABLET PO SCH ×2 (10:48→21:33)
[2020-08-22] MEDS: CEFTRIAXONE 1 GM in DEXTROSE 5%-WATER - 50 ML IVPB SCH (10:48)
[2020-08-22] MEDS ORDERED: SODIUM CHLORIDE 1,000 ML IV SCH (14:45)
[2020-08-22] MEDS ORDERED: FLUDROCORTISONE ACETATE 0.1 MG TABLET (FP) GT SCH (14:45)
[2020-08-22] MEDS: ATORVASTATIN CA 80 MG TABLET (FP) PO SCH (21:32)
[2020-08-22] MEDS: SENNOSIDES 8.6MG TABLET (FP) PO SCH (21:33)
[2020-08-22] MEDS: MONTELUKAST NA 10 MG TABLET PO SCH (21:34)
[2020-08-23] MEDS: FUROSEMIDE 40 MG/4 ML INJECTABLE VIAL IVPUSH SCH ×3 (06:46→13:45)
[2020-08-23] MEDS: INSULIN SLIDING SCALE (NOVOLOG) 1 VIAL SQ SCH ×2 (06:46→12:19)
[2020-08-23] MEDS: LEVOTHYROXINE NA 100 MCG TABLET (FP) PO SCH (06:48)
[2020-08-23] MEDS ORDERED: cefTRIAXone SODIUM 1 GM VIAL ONE (09:11)
[2020-08-23] MEDS ORDERED: DEXTROSE 5%-WATER - 50 ML IVPB ONE (09:11)
[2020-08-23] MEDS: amLODIPine BESYLATE 5 MG TABLET (FP) PO SCH (09:20)
[2020-08-23] MEDS: CEFTRIAXONE 1 GM in DEXTROSE 5%-WATER - 50 ML IVPB SCH (09:20)
[2020-08-23] MEDS: PANTOPRAZOLE SODIUM 40 MG VIAL IVPUSH SCH (09:20)
[2020-08-23] MEDS: ASPIRIN 81 MG CHEWABLE TABLETS PO SCH (09:20)
[2020-08-23] MEDS: FINASTERIDE 5 MG TABLET (FP) PO SCH (09:20)
[2020-08-23] MEDS: APIXABAN 5 MG TABLET PO SCH (09:20)
[2020-08-23] MEDS: BUDESONIDE/FORMETEROL FUMARATE 160/4.5 mcg INHALER IH SCH (09:20)
[2020-08-23] MEDS: predniSONE 20 MG TABLET (UD) PO SCH (09:20)
[2020-08-23] MEDS: TIOTROPIUM BROMIDE 2.5 MCG (SPIRIVA) RESPIMAT INHALER IH SCH (09:20)
[2020-08-23] MEDS: VALSARTAN 40 MG TABLET PO SCH (09:43)
[2020-08-23] MEDS: METOPROLOL TARTRATE 25 MG TABLET (FP) PO SCH (09:43)
[2020-08-23 10:55] LABS: ALBUMIN 2.1 g/dl (3.4-5.0); BILIRUBIN,TOTAL 0.4 mg/dL (0.2-1); BLOOD UREA NITROGEN 40.3 mg/dL (7-18); CALCIUM 8.9 mg/dL (8.5-10.1); CREATININE 1.3 mg/dL (0.55-1.3); POTASSIUM 3.9 mmol/L (3.5-5.1)
[2020-08-23 14:14] VITALS: PULSE 75
[2020-08-23 14:16] VITALS: BP 122/55; TEMP 97.8
== END 2020-08-23 16:46 | disposition hospice, home (50) | DRG 698 ==
LOC: JER 23:23 → UNDOADMOB 08-15 06:15 → JERBED 08-15 06:15 → INTOOBSV 08-15 06:15 → OBSVTOIN 08-15 07:20 → UNDOADMOB 08-15 07:20 → JERBED 08-15 07:20 → OBSVTOIN 08-16 17:09 → JERBED 08-16 17:09 → J6WEST-2 08-17 00:23 → JERBED 08-17 00:23 → J4W 08-21 19:05
PROVIDERS: ADMIT Hospitalist; ATTEND Student in an Organized Health Care Education/Training Program
DX: T83.511A Infection and inflammatory reaction due to indwelling urethral catheter, initial encounter (principal); A41.89 Other specified sepsis; I50.33 Acute on chronic diastolic (congestive) heart failure; G93.41 Metabolic encephalopathy; J96.01 Acute respiratory failure with hypoxia; I69.351 Hemiplegia and hemiparesis following cerebral infarction affecting right dominant side; J44.1 Chronic obstructive pulmonary disease with (acute) exacerbation; N17.9 Acute kidney failure, unspecified; I13.0 Hypertensive heart and chronic kidney disease with heart failure and stage 1 through stage 4 chronic kidney disease, or unspecified chronic kidney disease; E87.0 Hyperosmolality and hypernatremia; N39.0 Urinary tract infection, site not specified; N40.0 Benign prostatic hyperplasia without lower urinary tract symptoms; E78.5 Hyperlipidemia, unspecified; J45.909 Unspecified asthma, uncomplicated; E03.9 Hypothyroidism, unspecified; R55 Syncope and collapse; R50.9 Fever, unspecified; I45.10 Unspecified right bundle-branch block; D72.829 Elevated white blood cell count, unspecified; N18.9 Chronic kidney disease, unspecified; E86.0 Dehydration; I65.29 Occlusion and stenosis of unspecified carotid artery; I25.10 Atherosclerotic heart disease of native coronary artery without angina pectoris; H91.93 Unspecified hearing loss, bilateral; L89.152 Pressure ulcer of sacral region, stage 2; E11.9 Type 2 diabetes mellitus without complications; I48.0 Paroxysmal atrial fibrillation; R41.82 Altered mental status, unspecified; R13.10 Dysphagia, unspecified; R31.0 Gross hematuria; Z99.3 Dependence on wheelchair; Y83.8 Other surgical procedures as the cause of abnormal reaction of the patient, or of later complication, without mention of misadventure at the time of the procedure
CPT/HCPCS: 36415; 70450-TC; 71045-TC-FY; 74018-TC-FY; 74019-TC-FY; 74230-TC-FY; 76775-TC; 80048; 80053; 80061; 81003; 82272; 82436; 82550; 82565; 82962; 83036; 83605; 83721; 83735; 83880; 84100; 84133; 84300; 84443; 84484; 85025; 85027; 85610; 85730; 87040; 87077; 87086; 87186; 92611-GN; 93005; 93010; 93306-TC; 93880-TC; 94660; 99285-25; C9803; U0003